=== PATIENT | male | born 2000 | race Caucasian/White ===

== ENCOUNTER → 2021-04-30 10:03 | Outpatient (CLI) | payer SELFPAY | PROVIDERS: Visit Provider Nurse Practitioner | DX: Z20.822 Contact with and (suspected) exposure to COVID-19 (principal) | CPT/HCPCS: C9803; U0003; U0005 ==

== ENCOUNTER 2022-04-16 16:43 | Emergency (ER) | payer SELFPAY ==
[2022-04-16 16:55] VITALS: BP 123/81; PULSE 72; RESP 18; TEMP 36.9; O2SAT 98; BMI 24.3
--- NOTE | 2022-04-16 17:11 | EXP.UTC ---
Discharge Plan Disposition Patient Disposition: Home, Self-Care Condition: Good Prescriptions Prescriptions: New azithromycin [Zithromax Z-[place]] 250 mg tablet See Rx Instructions .ROUTE .COMPLEX 5 Days Qty: 6 0RF Rx Instructions: For 250 mg dose pack: take 500 mg today (day 1), then 250 mg for 4 days (days 2-5) methylprednisolone [Medrol ([place])] 4 mg tablets,dose pack See Rx Instructions .Route .COMPLEX 6 Days Qty: 21 0RF Rx Instructions: taper pack; [id number]-knfgyxvkz-[id number] [Bromfed DM] 2-30-10 mg/5 mL Syrup 10 ml PO Q4H PRN (Reason: Cough) Qty: 240 0RF Referrals Follow up/Referrals: Provider,Referral, MD [Primary Care Provider] - See instructions Activity Restrictions/Add. Instructions Additional Instructions/Restrictions: Start antibiotic today. Be sure to complete entire prescription even if feeling better Monitor temp. Tylenol every 4 hours as needed and / or ibuprofen every 6 hours as needed ( As long as your primary care physician has told you that it ok to take both. For fever/aches/pains ER if no less than 101 despite Tylenol or Motrin Humidifier/vaporizer or hot steamy shower Bromfed as prescribed may help with your cough *Start steroid today. Helps with inflammation therefore, cough and wheezing. Follow directions on the package. Reviewed side effects. Patient reports taking them before. Follow up IMMEDIATELY for new or worsening of symptoms OR no noticeable improvement over the next 48-72 hours. 911 immediately for any life threatening symptoms such as chest pain or difficulty breathing Clinical Impressions Clinical Impression: URI (upper respiratory infection) Instructions Patient Instructions: DI for Sinusitis, Acute Bronchitis, Cough Discharge ED [place] [facility] [place] General Stated complaint: cough, congestion, h/a Time Seen by Provider: 04/16/22 17:11 History of Present Illness Provider Complaint: Patient states that he has been having sinus congestion and cough States that feels like it is moving into his chest and causing his chest to burn at times when he coughs States he isnt coughing anything up yet then last night he started feeling achy and having achy like feeling in his back States that today cough is worse so he came in Related Data Previous Rx's Medication Instructions Recorded azithromycin 250 mg tablet See Rx Instructions PO .COMPLEX 5 04/16/22 (Zithromax Z-[place]) days #6 tabs [id number]-[id number]-[id number] 10 ml PO Q4H PRN Cough #240 mL 04/16/22 2 mg-30 mg-10 mg/5 mL oral syrup (Bromfed DM) methylprednisolone 4 mg tablets in See Rx Instructions .Route 04/16/22 a dose pack (Medrol ([place])) .COMPLEX 6 days #21 tabs Allergies Allergy/AdvReac Type Severity Reaction Status Date / Time No Known Allergies Allergy Verified 04/16/22 17:18 [facility] Disclaimer: The information contained in this section may have been updated after the patient was seen, as this information can be updated by other users. Surgical History (Updated 04/16/22 @ 17:16 by Sofie Zavala RN) History of tonsillectomy Social History (Updated 04/16/22 @ 17:18 by Sofie Zavala RN) Smoking Status: Unknown if ever smoked alcohol intake: never current occupational status: other Travel in the last 8 weeks: None ROS Obtained: Yes All systems reviewed & no additional complaints except as documented and Yes Systems reviewed as appropriate & no additional complaints except as documented Constitutional Constitutional: Reports system reviewed and no additional complaints, except as documented, Reports as per HPI, Reports body ache and Reports headache(s) ENT Ears, Nose, Mouth, and Throat: Reports system reviewed and no additional complaints, except as documented, Reports as per HPI, Reports headache(s), Reports nasal congestion and Reports sinus pressure Cardiovascular Cardiovascular: Report
[2022-04-16 17:27] LABS: UTC Influenza A Antigen Negative (Negative); UTC Influenza B Antigen Negative (Negative)
[2022-04-16 17:38] VITALS: BP 123/81; PULSE 72; RESP 18; TEMP 36.9; O2SAT 98
== END 2022-04-16 18:07 | disposition home or self-care (01) ==
PROVIDERS: Emergency Provider Nurse Practitioner
DX: J06.9 Acute upper respiratory infection, unspecified (principal)
CPT/HCPCS: 87804; 99212; G0463